=== PATIENT | male | born 1955 | race Caucasian/White ===

== ENCOUNTER 2019-04-13 17:46 | Emergency (ER) | payer MEDICARE, OTHER ==
[~2019-04-13] VITALS: Ht 177.8 cm; Wt 104.3 kg
[~2019-04-13 17:46] MED LIST: LOSA25TA27 PO
[2019-04-13] MEDS ORDERED: OXYCODONE/APAP 5-325 MG TABLET ONE (18:12)
[2019-04-13] MEDS ORDERED: OXYCODONE/APAP 5-325 MG TABLET PO ONE (18:15)
--- NOTE | 2019-04-13 18:20 | NUR ---
CONNER at bedside speaking with pt.
--- NOTE | 2019-04-13 19:32 | NUR ---
Called [facility] per MD request & spoke with Renan, charge nurse, regarding possible transfer.
--- NOTE | 2019-04-13 19:51 | NUR ---
[facility] trauma surgeon states pt does not meet trauma criteria and does not have ENT available at their facility at this time.
--- NOTE | 2019-04-13 20:34 | NUR ---
Paged Dr. Cory Kapoor (pt's barrow worker helper at [facility]) for possible transfer to [facility]. Pending call back.
[2019-04-13] MEDS ORDERED: ONDANSETRON ODT 4 MG TAB.RAPDIS ONE (20:39)
[2019-04-13] MEDS ORDERED: HYDROMORPHONE 1 MG/1 ML DISP.SYRIN ONE ×2 (20:40→22:53)
[2019-04-13] MEDS ORDERED: ONDANSETRON ODT 4 MG TAB.RAPDIS SL ONE (20:45)
[2019-04-13] MEDS ORDERED: HYDROMORPHONE 1 MG/1 ML DISP.SYRIN IM ONE (20:45)
--- NOTE | 2019-04-13 20:58 | NUR ---
Paged Dr. Kapoor 2nd time. Pending call back.
--- NOTE | 2019-04-13 21:33 | NUR ---
Paged Dr. Kapoor group 3rd time. Pending call back from Dr. Ibrahim (on-call)
--- NOTE | 2019-04-13 21:53 | NUR ---
Dr. Mattson, trauma surgeon @ [facility] accepted the patient. Pending transfer to [facility].
--- NOTE | 2019-04-13 22:09 | NUR ---
Judy figueroa for transport to [facility]. BANDAR @ [id number]. Trip#[id number]
--- NOTE | 2019-04-13 22:37 | NUR ---
Report given to Carlene COREA ([facility]).
[2019-04-13] MEDS ORDERED: HYDROMORPHONE 1 MG/1 ML DISP.SYRIN IV ONE (22:45)
--- NOTE | 2019-04-13 22:57 | NUR ---
[facility] here to transport pt to [facility]. Pt respirations even + unlabored. No acute disterss noted. Vital signs stable. Pt states he feels better.
== END 2019-04-13 23:09 | disposition short-term general hospital (02) ==
LOC: ER 17:49
DX: S00.83XA Contusion of other part of head, initial encounter (principal); I10 Essential (primary) hypertension; F17.200 Nicotine dependence, unspecified, uncomplicated; Z79.899 Other long term (current) drug therapy; Y04.2XXA Assault by strike against or bumped into by another person, initial encounter; Y93.89 Activity, other specified; Y92.89 Other specified places as the place of occurrence of the external cause; Y99.8 Other external cause status
CPT/HCPCS: 70450; 70486; 96372; 96374; 99285; J1170 ×2; A4217; A4663; Q0162